=== PATIENT | female | born 1960 | race Caucasian/White ===

== ENCOUNTER 2018-02-28 22:37 | Emergency (ER) | payer BC ==
[~2018-02-28] VITALS: Ht 154.9 cm; Wt 61.2 kg
[2018-03-01] MEDS ORDERED: ONDANSETRON HCL 4 MG/2 ML VIAL IV ONE (00:45)
[2018-03-01] MEDS ORDERED: MORPHINE SULFATE 4 MG/ML SYR/VIAL IV ONE (00:45)
[2018-03-01] MEDS ORDERED: MORPHINE SULF INJ 2 MG/ML SYRINGE 1ML ONE (01:18)
[2018-03-01] MEDS ORDERED: HYDROmorphone HCL 2 MG/ML VL IV ONE ×3 (01:30→09:15)
[2018-03-01 08:06] LABS: Basophils # (auto) 0 uL; Basophils % (auto) 0.8 % (0.0-2.0); Eosinophils # (auto) 0.1 uL; Eosinophils % (auto) 0.9 % (0.0-7.0); Hematocrit 35.4 % (36.0-46.0); Lymphocytes # (auto) 1.3 uL; Lymphocytes % (auto) 21.1 % (10.0-50.0); Mean Corpuscular Hemoglobin 31.3 pg (28.0-32.0); Mean Corpuscular Hgb Conc. 33.9 g/dL (32.0-36.0); Mean Corpuscular Volume 92.5 fL (80.0-100.0); Monocytes # (auto) 0.5 uL; Neutrophils # (auto) 4.3 uL; Neutrophils % (auto) 69.2 % (37.0-80.0); Platelet Count (auto) 206 10^3/uL (140-450); Red Blood Cells 3.82 10^6/uL (4.0-5.20); Red Cell Distribution Width 13.2 % (11.8-14.3); White Blood Cell 6.3 10^3/uL (4.4-10.8)
[2018-03-01 08:22] LABS: Partial Thromboplastin Time 24.7 sec (23.78-33.04); Prothrombin Time 10.7 sec (9.27-12.13)
[2018-03-01 08:23] LABS: Albumin 3.6 g/dL (3.4-5.0); BUN/Creatinine Ratio 11.5; Magnesium 1.8 mg/dL (1.6-2.6)
[2018-03-01 08:25] LABS: Bilirubin, Total 0.8 mg/dL (0.2-1.0); Total Protein 6.4 g/dL (6.4-8.2)
[2018-03-01] MEDS ORDERED: PROMETHAZINE HCL 25 MG/ML 1ML IV ONE (09:15)
[2018-03-01 10:06] VITALS: BP 149/92
== END 2018-03-01 10:42 | disposition short-term general hospital (02) ==
LOC: EDBD 22:37 → ER 22:43
DX: S72.141A Displaced intertrochanteric fracture of right femur, initial encounter for closed fracture (principal); E11.9 Type 2 diabetes mellitus without complications; I10 Essential (primary) hypertension; E78.5 Hyperlipidemia, unspecified; V89.2XXA Person injured in unspecified motor-vehicle accident, traffic, initial encounter; Y93.89 Activity, other specified; Y99.8 Other external cause status; Y92.89 Other specified places as the place of occurrence of the external cause
CPT/HCPCS: 36415; 71045; 72170; 73502; 80053; 82962; 83735; 83880; 84443; 85025; 85610; 85730; 96374; 96375; 96376; 99285; J1170; J2270; J2405; J2550; 51702

== ENCOUNTER 2022-11-29 07:42 | Emergency (ER) | payer BC ==
[~2022-11-29] VITALS: Ht 154.9 cm; Wt 47.0 kg
[2022-11-29 08:10] VITALS: BP 195/88; PULSE 70; RESP 15; TEMP 99; O2SAT 97
[2022-11-29] MEDS ORDERED: HYDROcodone-ACET 5/325MG TAB PO ONE (08:30)
[2022-11-29] MEDS ORDERED: IBUP-1456 PO ×2 (09:13)
[2022-11-29] MEDS ORDERED: IBUP-1454 PO (09:13)
[2022-11-29] MEDS ORDERED: METH-1181 PO (09:13)
== END 2022-11-29 09:20 | disposition home or self-care (01) ==
LOC: ER 07:42
DX: S76.011A Strain of muscle, fascia and tendon of right hip, initial encounter (principal); S23.41XA Sprain of ribs, initial encounter; E11.9 Type 2 diabetes mellitus without complications; I10 Essential (primary) hypertension; E78.5 Hyperlipidemia, unspecified; Z98.890 Other specified postprocedural states; W18.39XA Other fall on same level, initial encounter; Y93.89 Activity, other specified; Y92.89 Other specified places as the place of occurrence of the external cause; Y99.8 Other external cause status
CPT/HCPCS: 71101; 73502

== ENCOUNTER 2024-03-13 07:01 | Emergency (ER) | payer BC ==
[~2024-03-13] VITALS: Ht 154.9 cm; Wt 59.6 kg
[~2024-03-13 07:01] MED LIST: IBUP-1454 PO; METH-1181 PO
[2024-03-13 07:15] VITALS: RESP 16; O2SAT 97
--- NOTE | 2024-03-13 08:06 | DVH ---
EXAM: CT HEAD WITHOUT CONTRAST INDICATION: FALL TECHNIQUE: CT of the head without intravenous contrast. Coronal and sagittal reformatted images are submitted. Radiation Dose : 1. Head: CT Dose: CTDI volume is 19.7 mGy. Dose-length product is 506.5 mGy*cm The dose indicators for CT are the volume Computed Tomography (CT) Dose Index (CTDIvol) and the Dose Length Product (DLP), and are measured in units of mGy and mGy-cm, respectively. These indicators are not patient dose, but values generated from the CT scanner acquisition factors. The report includes radiation exposure data for exposures received during this examination. All CT scans at this medical facility are performed using dose modulation techniques as appropriate to a performed exam including the following: Automated exposure control was utilized; adjustment of the MA and/or KV according to patient size; and use of iterative reconstruction technique. COMPARISON: None FINDINGS: There is no evidence of acute intracranial hemorrhage, extra-axial collection, mass effect, midline s hift, herniation or hydrocephalus. The ventricles, sulci and cisterns are age appropriate. The casper-white differentiation is intact. The mastoid air cells are clear. Mild mucosal thickening in the maxillary sinuses. No depressed calvarial fracture. The surrounding soft tissues are unremarkable. IMPRESSION: 1. No evidence of acute intracranial abnormality.
--- NOTE | 2024-03-13 08:09 | DVH ---
EXAM: CT CERVICAL WITHOUT CONTRAST INDICATION: FALL EXAM DATE: 03/13/2024 07:40 AM COMPARISON: None TECHNIQUE: Multiple axial CT images of the cervical spine were obtained using bone algorithm. Sagitta l and coronal reformatting was done. Bone and soft tissue windows were reviewed. Radiation Dose Information: CT Dose: CTDI volume is 19.7 mGy. Dose-length product is 506.5 mGy*cm FINDINGS: The cervical alignment is intact. No acute cervical spine fracture is identified. The vertebral body heights are intact. No suspicious osseous lesions are identified. Multilevel intervertebral disc space narrowing. No significant bony canal stenosis. Multilevel neura l foraminal stenosis. There is no prevertebral soft tissue swelling. The lung apices are clear. IMPRESSION: 1. No evidence of acute cervical spine fracture or traumatic malalignment. 2. Degenerative changes in the cervical spine. All CT scans at this medical facility are performed using dose modulation techniques as appropriate t o a performed exam including the following: Automated exposure control was utilized; adjustment of th e MA and/or KV according to patient size; and use of iterative reconstruction technique.
--- NOTE | 2024-03-13 08:18 | DVH ---
CLINICAL INDICATION: 63 years old, Female; FALL. TECHNIQUE: Noncontrast CT of the maxillofacial structures. Sagittal and coronal reformatted images ar e provided. COMPARISON: None CT Dose: CTDI volume is 66.88 mGy. Dose-length product is 2664.53 mGy*cm FINDINGS: No fracture or dislocation. The orbits are intact and intraorbital contents are symmetric. Nasal bone is intact. There is mucosal thickening in the left maxillary sinus. Temporomandibular joint space narrowing bilaterally, right greater than left. There is left frontal scalp swelling. IMPRESSION: 1. No fracture or dislocation. 2. Left frontal scalp swelling. All CT scans at this medical facility are performed using dose modulation techniques as appropriate t o a performed exam including the following: Automated exposure control was utilized; adjustment of th e MA and/or KV according to patient size; and use of iterative reconstruction technique.
[2024-03-13 09:38] VITALS: BP 147/82; TEMP 98.5
--- NOTE | 2024-03-13 09:38 | ED.PDOC ---
History of Present Illness HPI Comments 63-year-old female presents with a chief complaint of bruising to left eye socket s/p fall x Wednesday. Patient states that on Wednesday (03/11/2024) she had a mechanical trip and fall in her kitchen and hit her head on the wall. Patient denies losing consciousness and denies use of blood thinners. Patient does endorse a headache, but says that it is "mild". Patient denies any vision changes or neurological deficits. No other symptoms or modifying factors present at this time. Chief Complaint: Fall Injury Time Seen by MD: 09:29 Primary Care Provider: AME Reviewed Notes: Medications, Allergies Allergies: Coded Allergies: NO KNOWN ALLERGIES (Unverified , 02/28/18) Home Meds Active Scripts Ibuprofen (Ibuprofen) 600 Mg Tab, 1 TAB PO TID, #30 TAB Prov:TANYA PRAKASH 11/29/22 Methocarbamol (Methocarbamol) 500 Mg Tab, 500 MG PO BID, #20 TAB Prov:TANYA PRAKASH 11/29/22 Information Source: Patient Mode of Arrival: Ambulatory Severity: Moderate Timing: Days Duration: Since onset Prehospital treatment: None Vital Signs Vital Signs Date Time Temp Pulse Resp B/P (MAP) Pulse Ox O2 Delivery O2 Flow Rate FiO2 03/13/24 09:40 97 20 98 Room Air* 0 21 03/13/24 09:38 98.5 147/82 (103) 98.5 Past Medical History PAST MEDICAL HISTORY: DM, High Lipids, HTN 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 Was a procedure done?: No X-Ray, Labs, Meds, VS Vital Signs Date Time Temp Pulse Resp B/P (MAP) Pulse Ox O2 Delivery O2 Flow Rate FiO2 03/13/24 09:40 97 20 98 Room Air* 0 21 03/13/24 09:38 98.5 97 20 147/82 (103) 98 98.5 03/13/24 08:24 98.3 89 20 191/103 (132) 99 98.3 03/13/24 07:15 99.3 98 16 206/113 (144) 97 203/88 (126) 03/13/24 07:15 16 97 Room Air* 0 21 Time of 1ST Reevaluation: 09:59 Reevaluation 1ST: Unchanged Patient Education/Counseling: Diagnosis, Treatment, Prognosis Family Education/Counseling: No Family Present Departure 1 Departure Time of Disposition: 09:53 Impression: Primary Impression: Head injury Additional Impressions: Facial injury Hematoma Neck pain Disposition: 01 HOME / SELF CARE / HOMELESS Condition: Stable Additional Instructions: ED DISCHARGE INSTRUCTIONS Instructions: Please read all instructions provided in this packet carefully. Although you have been discharged from the Emergency Department, this does not mean that you have a "clean bill of health". No definitive diagnosis for your symptoms has been made today. It is possible that you are in the process of developing a serious illness. This is why you must return to the ED without fail if any new or worsening symptoms (especially if your symptoms include chest pain, trouble breathing, abdominal pain, fever, headache, confusion, trouble seeing, or trouble walking) It is also very important that you see a primary care doctor within the next 3-5 days to follow up. If you are unable to get an appointment, return to the ED for re-evaluation. Head Injury: Care Instructions Table of Contents Overview How can you care for yourself at home? When should you call for help? Credits Overview Most injuries to the head are minor. Bumps, cuts, and scrapes on the head and face usually heal well and can be treated the same as injuries to other parts of the body. Although it's rare, once in a while a more serious problem shows up after you are home. So it's good to be on the lookout for symptoms for a day or two. Follow-up care is a henderson part of your treatment and safety. Be sure to make and go to all appointments, and call your doctor if you are having problems. It's also a good idea to know your test results and keep a list of the medicines you take. How can you care for yourself at home? Follow your doctor's instructions. The doctor will tell you if you need someone to watch you closely for the next 24 hours or longer. Take it easy for the next few days or more if you are not feeling well. Ask your doctor when it's okay for you to go back to activities like driving a car, riding a bike, or operating machinery. When should you call for help? Call 911 anytime you think you may need emergency care. For example, call if: You have a seizure. You passed out (lost consciousness). You are confused or can't stay awake. You have a headache that gets worse and does not go away. You have new vision changes or one pupil (the black part in the middle of the eye) that is larger than the other. You have slurred speech, balance problems, or decreased coordination. Call your doctor now or seek immediate medical care if: You have new or worse vomiting. You feel less alert. You have new weakness or numbness in any part of your body. You have new symptoms, such as unclear thinking or changes in mood. Watch closely for changes in your health, and be sure to contact your doctor if: You do not get better as expected. Credits for Head Injury: Care Instructions Current as of: February 17, 2023 Author: [employer] Staff e-Prescriptions Acetaminophen (Acetaminophen Er) 650 Mg Tab 650 MG PO QID for 5 Days, #20 TAB Prov: EULALIO ARCHULETA MD 03/13/24 Critical Care Note Critical Care Time?: No Stability Stability form required: No I personally scribed for EULALIO ARCHULETA MD ([email or web address]) on 03/13/24 at 09:38. Electronically submitted by Evan Chan ([email or web address]). EULALIO ARCHULETA MD Mar 13, 2024 09:38
[2024-03-13 09:40] VITALS: PULSE 97; RESP 20; O2SAT 98
[2024-03-13] MEDS ORDERED: ACET650T12 PO (09:56)
== END 2024-03-13 10:14 | disposition home or self-care (01) ==
LOC: ER 07:01
DX: S05.12XA Contusion of eyeball and orbital tissues, left eye, initial encounter (principal); S09.90XA Unspecified injury of head, initial encounter; E11.9 Type 2 diabetes mellitus without complications; E78.5 Hyperlipidemia, unspecified; I10 Essential (primary) hypertension; Z98.890 Other specified postprocedural states; W01.0XXA Fall on same level from slipping, tripping and stumbling without subsequent striking against object, initial encounter; Y93.89 Activity, other specified; Y92.89 Other specified places as the place of occurrence of the external cause; Y99.8 Other external cause status
CPT/HCPCS: 70450; 70486; 72125